=== PATIENT | female | born 1960 | race Caucasian/White ===

== ENCOUNTER 2017-01-16 22:41 | Emergency (ER) | payer SELFPAY ==
--- NOTE | 2017-01-16 23:26 | ED.PDOC ---
History of Present Illness - General Chief Complaint: Lower Extremity Injury Stated Complaint: Lt Knee Pain Down Back of Leg Time Seen by Provider: 01/16/17 22:45 Source: patient, RN notes reviewed, Vital Signs reviewed, family Exam Limitations: no limitations - History of Present Illness Initial Comments: Patient comes to ER with c/o of L leg/knee pain that started @ ~20:30 tonight when she was getting out of the bathtub. She is concerned because she had knee surgery ~ 35 years ago and has never had pain like this before. She reports the pain goes from her ankle to her buttock on the L side. Reports it feels like when you hit your funny bone. She took BC powder ~ 10 minutes before heading to the ER and reports the pain is starting to ease up some. Occurred: just prior to arrival Pain - Lower Extremity: moderate: Left Thigh/Hip, Left Leg, Left Knee, Left Calf , Left Ankle Method of Injury: unknown Improving Factors: medication - BC Powder Worsening Factors: nothing Allergies/Adverse Reactions: Allergies NO KNOWN ALLERGY Allergy (Verified 01/16/17 23:28) Review of Systems - Review of Systems Constitutional: States: no symptoms reported Respiratory: States: no symptoms reported Cardiology: States: no symptoms reported Musculoskeletal: States: see HPI Skin: States: no symptoms reported Neurological: States: numbness - L foot, paresthesia - L leg, tingling - L leg All other Systems: No Change from Baseline Physical Exam - Physical Exam General Appearance: Alert, Comfortable, No apparent distress, Well Developed, Well Groomed, Well Hydrated, Well Nourished Cardiovascular/Respiratory: normal peripheral pulses Thigh/Hip: normal inspection, other - tenderness in L sciatic notch Leg: normal inspection, no evidence of injury, normal ROM, soft tissue tenderness Knee: no evidence of injury, normal ROM, joint effusion, soft tissue tenderness , swelling Ankle: normal inspection, non-tender, no evidence of injury Foot: normal inspection, non-tender, no evidence of injury, normal ROM Neuro/Tendon: normal sensation, normal motor functions, normal tendon functions , responds to pain, no evidence tendon injury Mental Status: alert, oriented x 3 Skin: normal color, warm/dry Progress - Progress Progress: 01/17/17 00:25 Patient is resting comfortably after Solu-Medrol 125mg IM and [place] 5mg PO Will d/c home to follow up with PCP Departure - Departure Clinical Impression: Sciatica of left side Time of Disposition: 00:25 Disposition: Discharge to Home or Self Care Condition: Good Departure Forms: ED Discharge - Pt. Copy, Patient Portal Self Enrollment Instructions: DI for Sciatica Diet: resume usual diet Activity: increase activity as tolerated Additional Instructions: Follow up with your doctor in 3-5 days, sooner if needed.
[2017-01-16] MEDS ORDERED: HYDROcodone 5MG/APAP 325MG 1 EA TAB PO ONE (23:29)
[2017-01-16] MEDS ORDERED: methylPREDNISolone SODIUM SUC 125 MG/2 ML VIAL IM ONE (23:29)
[2017-01-17 01:34] VITALS: BP 183/96; TEMP 97.6; O2SAT 96
== END 2017-01-17 00:40 | disposition home or self-care (01) ==
LOC: ER 22:41
DX: M54.32 Sciatica, left side (principal)

== ENCOUNTER 2018-10-27 17:22 | Emergency (ER) | payer SELFPAY ==
[2018-10-27] MEDS: amLODIPine BESYLATE 5 MG TAB PO ONE (17:52)
[2018-10-27] MEDS: POTASSIUM CHLORIDE ELIXIR 20 MEQ/15 ML UD PO ONE (18:14)
[2018-10-27] MEDS: CIPROFLOXACIN 500 MG TAB PO ONE (18:34)
[2018-10-27] MEDS: cloNIDine HCL 0.1 MG TAB PO ONE (18:34)
[2018-10-27] MEDS: LISINOPRIL 10 MG TAB PO ONE (18:34)
[2018-10-27] MEDS: SPIRONOLACTONE 25 MG TAB PO ONE (20:20)
[2018-10-27 21:08] VITALS: O2SAT 98
--- NOTE | 2018-10-27 21:26 | ED.PDOC ---
History of Present Illness - General Chief Complaint: Blood Pressure Problem Stated Complaint: Hypertensive Time Seen by Provider: 10/27/18 17:32 Source: patient Exam Limitations: no limitations - History of Present Illness Initial Comments: The patient's a 58-year-old female presenting to the emergency room secondary to morbid hypertension. Blood pressures in clinic were in the 260s over 150s. She is currently asymptomatic but over the last couple of weeks she has had periods of tunnel vision and a headache. No focal neurological changes. 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 Timing/Duration: other - likely very long duration Severity: mild Improving Factors: nothing Worsening Factors: nothing Associated Symptoms: headaches Allergies/Adverse Reactions: Allergies NO KNOWN ALLERGY Allergy (Verified 10/27/18 17:39) Home Medications: Ambulatory Orders Amlodipine Besylate 10 mg PO DAILY #30 tab 10/27/18 Ciprofloxacin [Cipro] 500 mg PO BID #10 tab 10/27/18 Lisinopril 20 mg PO DAILY #30 tab 10/27/18 Review of Systems - Review of Systems Constitutional: States: no symptoms reported EENTM: States: see HPI Respiratory: States: no symptoms reported Cardiology: States: no symptoms reported Gastrointestinal/Abdominal: States: no symptoms reported Genitourinary: States: no symptoms reported Musculoskeletal: States: no symptoms reported Skin: States: no symptoms reported Neurological: States: headache Endocrine: States: no symptoms reported All other Systems: No Change from Baseline Past Medical History (General) - Patient Medical History Hx Seizures: No Hx Stroke: No Hx Dementia: No Hx Asthma: No Hx of COPD: No Hx Cardiac Disorders: No Hx Congestive Heart Failure: No Hx Pacemaker: No Hx Hypertension: Yes Hx Thyroid Disease: No Hx Diabetes: No Hx Gastroesophageal Reflux: No Hx Renal Disease: No Hx Cancer: No Hx of HIV: No Hx Hepatitis C: No Hx MRSA: No Surgical History: Hysterectomy, other - Vaccination History Hx Tetanus, Diphtheria Vaccination: Yes Hx Influenza Vaccination: No Hx Pneumococcal Vaccination: No - Social History Hx Tobacco Use: Yes Hx Alcohol Use: Yes Hx Substance Use: No Hx Substance Use Treatment: No Hx Depression: No - Female History Patient is a Female of Child Bearing Age (10 -59 yrs old): Yes Patient : No - Hysterectomy Family Medical History - Family History Mother Family History: Unknown Hx Family Hypertension: Yes Father Family History: Unknown Hx Family Hypertension: Yes Physical Exam - Physical Exam General Appearance: Alert, Comfortable, No apparent distress Eye Exam: bilateral normal Ears, Nose, Throat: hearing grossly normal, normal ENT inspection Neck: full range of motion, supple Respiratory: lungs clear, normal breath sounds, no respiratory distress, no accessory muscle use Cardiovascular/Chest: normal peripheral pulses, regular rate, rhythm, no edema Peripheral Pulses: radial,right: 2+, radial,left: 2+, dorsalis pedis,right: 2+, dorsalis pedis,left: 2+ Gastrointestinal/Abdominal: non tender, soft Rectal Exam: deferred Back Exam: no CVA tenderness, no vertebral tenderness Extremity: normal range of motion, non-tender, normal inspection, no pedal edema, normal capillary refill 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, alert, normal mood/affect, oriented x 3 Skin Exam: normal color Comments: Vital Signs - 24 hr 10/27/18 10/27/18 10/27/18 17:30 17:33 18:29 Temperature 98.6 F Pulse Rate [L 92 H 92 H 75 finger] Respiratory 18 18 20 Rate Blood Pressure 261/133 208/121 [L brachial] O2 Sat by Pulse 99 99 Oximetry 10/27/18 10/27/18 10/27/18 19:00 20:00 20:48 Temperature Pulse Rate [L 82 87 82 finger] Respiratory 18 18 18 Rate Blood Pressure 217/121 186/108 186/103 [L brachial] O2 Sat by Pulse 99 99 99 Oximetry 10/27/18 21:00 Temperature Pulse Rate [L 71 finger] Respiratory 18 Rate Blood Pressure 159/87 [L brachial] O2 Sat by Pulse 98 Oximetry Progress - Progress Progress: 10/27/18 21:26 the patient is a 58-year-old female presenting secondary to severe hypertension and what appears to be a small urinary tract infection. She'll be placed on ciprofloxacin for 5 days for the urinary tract infection. For the hypertension she is going to be placed on amlodipine 10 mg and lisinopril 20 mg daily. I want to avoid diuretics for the moment as she does have significant heat exposure in the summer. She needs to follow back up with her primary care doctor in about a week. She does need to obtain a blood pressure cuff and take blood pressures while she is at rest several times a day. ER warnings were given for any worsening. Blood pressures have responded positively to medications here today. - Results/Orders Results/Orders: Laboratory Tests 10/27/18 10/27/18 10/27/18 17:50 17:50 18:02 WBC 5.1 RBC 4.72 Hgb 15.3 Hct 43.6 MCV 92.4 MCH 32.5 H MCHC 35.1 RDW 13.6 Plt Count 235 MPV 7.4 Absolute Neuts (auto) 2.60 Absolute Lymphs (auto) 1.80 Absolute Monos (auto) 0.40 Absolute Eos (auto) 0.20 Absolute Basos (auto) 0.10 Neutrophils % 50.5 Lymphocytes % 36.0 Monocytes % 8.7 Eosinophils % 3.0 Basophils % 1.8 Sodium 140 Potassium 3.3 L Chloride 106 Carbon Dioxide 23 Anion Gap 14.3 BUN 16 Creatinine 0.49 L BUN/Creatinine Ratio 32.7 H Random Glucose 107 H Serum Osmolality 281.1 Calcium 8.7 Total Bilirubin 0.2 AST 22 ALT 17 Alkaline Phosphatase 138 H Creatine Kinase 49 CK-MB (CK-2) 3.1 CK-MB (CK-2) % Not Reportable Troponin I 0.02 B-Natriuretic Peptide 348.0 H* Serum Total Protein 6.9 Albumin 3.6 Globulin 3.3 Albumin/Globulin Ratio 1.1 TSH 1.40 Urine Color Yellow Urine Appearance Sl cloudy Urine pH 6.5 Ur Specific [place] 1.020 Urine Protein Negative Urine Glucose (UA) Negative Urine Ketones Negative Urine Blood Moderate H Urine Nitrite Positive H Urine Bilirubin Negative Urine Urobilinogen 0.2 Ur Leukocyte Esterase Negative Urine RBC 1-3 Urine WBC 1-3 Ur Epithelial Cells 3-5 Urine Bacteria 4+ H Departure - Departure Clinical Impression: Hypertensive urgency, Cystitis Disposition: Discharge to Home or Self Care Condition: Fair Departure Forms: ED Discharge - Pt. Copy, Patient Portal Self Enrollment Diet: regular diet Activity: increase activity as tolerated Prescriptions: Amlodipine Besylate 10 mg PO DAILY #30 tab Ciprofloxacin [Cipro] 500 mg PO BID #10 tab Lisinopril 20 mg PO DAILY #30 tab Home Medications: Ambulatory Orders Amlodipine Besylate 10 mg PO DAILY #30 tab 10/27/18 Ciprofloxacin [Cipro] 500 mg PO BID #10 tab 10/27/18 Lisinopril 20 mg PO DAILY #30 tab 10/27/18 Additional Instructions: the patient is a 58-year-old female presenting secondary to severe hypertension and what appears to be a small urinary tract infection. She'll be placed on ciprofloxacin for 5 days for the urinary tract infection. For the hypertension she is going to be placed on amlodipine 10 mg and lisinopril 20 mg daily. I want to avoid diuretics for the moment as she does have significant heat exposure in the summer. She needs to follow back up with her primary care doctor in about a week. She does need to obtain a blood pressure cuff and take blood pressures while she is at rest several times a day. ER warnings were given for any worsening. Blood pressures have responded positively to medications here today.
[2018-10-27 21:38] VITALS: BP 140/78; TEMP 98.1
== END 2018-10-27 21:32 | disposition home or self-care (01) ==
LOC: ER 17:22
DX: I16.0 Hypertensive urgency (principal); N30.90 Cystitis, unspecified without hematuria; Z79.899 Other long term (current) drug therapy; Z87.891 Personal history of nicotine dependence